=== PATIENT | male | born 1995 | race Caucasian/White ===

== ENCOUNTER 2019-11-06 23:22 | Emergency (ER) | payer MEDICAID ==
[~2019-11-06] VITALS: Ht 167.6 cm; Wt 76.2 kg
[2019-11-07 00:40] VITALS: BP 134/84
== END 2019-11-07 00:40 | disposition home or self-care (01) ==
LOC: ED 23:22
DX: F41.9 Anxiety disorder, unspecified (principal); R11.10 Vomiting, unspecified; G47.00 Insomnia, unspecified; F12.90 Cannabis use, unspecified, uncomplicated
CPT/HCPCS: Q0162